=== PATIENT | male | born 1985 | race American Indian/Alaskan Native ===

== ENCOUNTER 2018-01-01 14:25 | Emergency (ER) | payer SELFPAY ==
[2018-01-01 15:02] VITALS: BP 139/94
[2018-01-01] MEDS ORDERED: ASPIRIN PO ONE (15:02)
[2018-01-01 15:26] LABS: Basophils % (Auto) 0.7 % (0.0-1.8); Eosinophils # (Auto) 0.1 K/mm3 (0.0-0.4); Eosinophils % (Auto) 1.5 % (0.0-4.3); Hematocrit 48.5 % (35.5-45.6); Hemoglobin 15.7 gm/dl (11.8-15.2); Lymphocytes % (Auto) 42.4 % (13.4-35.0); Mean Corpuscular HGB Conc 32 % (32-34); Mean Corpuscular Hemoglobin 28 pg (28-32); Mean Corpuscular Volume 85 fl (84-94); Monocytes # (Auto) 0.7 K/mm3 (0.0-0.8); Monocytes % (Auto) 9.7 % (0.0-7.3); Platelet Count 224 K/mm3 (140-440); Red Blood Count 5.71 M/mm3 (3.65-5.03); Red Cell Distribution Width 15.6 % (13.2-15.2)
[2018-01-01 15:45] LABS: BUN/Creatinine Ratio 19; Blood Urea Nitrogen 17 mg/dL (9-20); Calcium 9.1 mg/dL (8.4-10.2); Hemolysis Index 15
== END 2018-01-01 18:55 | disposition left against medical advice (07) ==
LOC: ED 14:25
DX: R07.9 Chest pain, unspecified (principal); Z53.21 Procedure and treatment not carried out due to patient leaving prior to being seen by health care provider
CPT/HCPCS: 36415; 80048; 84484; 85025; 93005; 93010

== ENCOUNTER 2019-05-19 23:32 | Inpatient (IN) | payer SELFPAY ==
[2019-05-20] MEDS ORDERED: ASPIRIN 325 MG TAB PO ONE (00:09)
--- NOTE | 2019-05-20 00:27 | Emergency Department Report ---
HPI - General Chief Complaint: Chest Pain Time Seen by Provider: 05/20/19 00:13 - HPI HPI: Room 6 The patient is a 34-year-old male presenting with a chief complaint of chest pain and left-sided numbness. The patient states about 30 minutes prior to ar rival he developed sharp intermittent pain in his left chest in addition to numbness in his left upper extremity and left lower extremity. Patient exhibits intermittent twitching of his left upper extremity. Patient denies shortness of breath but admits to diaphoresis and nausea without vomiting associated with this chest pain. Patient denies headache, dysarthria or dysphagia. Patient complains of slight weakness in his left upper extremity. The patient admits to similar episodes proximately 4-5 months ago but he never sought medical attention Location: [See above] Duration: [See above] Quality: [See above] Severity: [See above] Timing: [See above] Context: [See above] Modifying factors: [See above] Associated signs and symptoms: [see above] ED Past Medical Hx - Past Medical History Previous Medical History?: No - Surgical History Past Surgical History?: No - Family History Family history: no significant - Social History Smoking Status: Current Every Day Smoker (cigars) Substance Use Type: None (denies illicit drug use), Alcohol (daily) - Medications Home Medications: Home Medications Medication Instructions Recorded Confirmed Last Taken Type Cyclobenzaprine [Flexeril 10mg] 10 mg PO TID PRN #20 tablet 03/29/14 Unknown Rx HYDROcodone/APAP 5-325 [[place] 1 each PO Q6HR PRN #20 tablet 03/29/14 Unknown Rx 5/325] Ibuprofen [Motrin] 800 mg PO Q8H PRN #20 tablet 03/29/14 Unknown Rx ED Review of Systems ROS: Stated complaint: CHEST PAIN, LEFT ARM TINGLING Other details as noted in HPI Constitutional: diaphoresis Eyes: denies: eye pain ENT: denies: throat pain Respiratory: denies: shortness of breath Cardiovascular: chest pain Endocrine: no symptoms reported Gastrointestinal: nausea. denies: vomiting Genitourinary: denies: dysuria Musculoskeletal: denies: back pain Neurological: headache Physical Exam - Physical Exam Vital Signs: Vital Signs 05/19/19 23:37 Temperature 97.8 F Pulse Rate 107 H Respiratory 18 Rate Blood Pressure 132/82 O2 Sat by Pulse 94 Oximetry Physical Exam: GENERAL: The patient is well-developed well-nourished male lying on stretcher not appearing to be in acute distress. [] HEENT: Normocephalic. Atraumatic. Extraocular motions are intact. Patient has moist mucous membranes. NECK: Supple. Trachea midline CHEST/LUNGS: Clear to auscultation. There is no respiratory distress noted. HEART/CARDIOVASCULAR: Regular. There is no tachycardia. There is no gallop rub or murmur. ABDOMEN: Abdomen is soft, nontender. Patient has normal bowel sounds. There is no abdominal distention. SKIN: There is no rash. There is no edema. There is no diaphoresis. NEURO: The patient is awake, alert, and oriented. The patient is cooperative. Cranial nerves II through XII grossly intact, motor. The patient has normal MUSCULOSKELETAL: There is no evidence of acute injury. ED Course Vital Signs 05/19/19 23:37 Temperature 97.8 F Pulse Rate 107 H Respiratory 18 Rate Blood Pressure 132/82 O2 Sat by Pulse 94 Oximetry ED Medical Decision Making - Lab Data Result diagrams: 05/20/19 00:13 05/20/19 00:13 Laboratory Tests 05/20/19 05/20/19 05/20/19 00:13 00:13 00:20 WBC 7.5 RBC 5.22 H Hgb 14.5 Hct 44.2 MCV 85 MCH 28 MCHC 33 RDW 15.7 H Plt Count 207 Lymph % (Auto) 51.6 H Hughes % (Auto) 6.0 Eos % (Auto) 1.3 Baso % (Auto) 0.9 Lymph # 3.9 Hughes # 0.4 Eos # 0.1 Baso # 0.1 Seg Neutrophils % 40.2 Seg Neutrophils # 3.0 PT 13.2 INR 1.03 APTT 23.5 L Thrombin Time 15.8 Sodium 141 Potassium 3.9 Chloride 106.9 Carbon Dioxide 20 L Anion Gap 18 BUN 20 Creatinine 1.1 Estimated GFR > 60 BUN/Creatinine Ratio 18 Glucose 96 POC Glucose Calcium 9.1 Total Creatine Kinase CK-MB (CK-2) CK-MB (CK-2) Rel Index Troponin T < 0.010 05/20/19 05/20/19 00:20 00:31 WBC RBC Hgb Hct MCV MCH MCHC RDW Plt Count Lymph % (Auto) Hughes % (Auto) Eos % (Auto) Baso % (Auto) Lymph # Hughes # Eos # Baso # Seg Neutrophils % Seg Neutrophils # PT INR APTT Thrombin Time Sodium Potassium Chloride Carbon Dioxide Anion Gap BUN Creatinine Estimated GFR BUN/Creatinine Ratio Glucose POC Glucose 92 Calcium Total Creatine Kinase 433 H CK-MB (CK-2) 3.7 CK-MB (CK-2) Rel Index 0.8 Troponin T - EKG Data -: EKG Interpreted by Me EKG shows normal: sinus rhythm Rate: normal - EKG Data When compared to previous EKG there are: previous EKG unavailable Interpretation: nonspecific ST-T wave sary (TWI lead 3) - Radiology Data Radiology results: report reviewed (CT head, CT Chest, CXR), image reviewed (CT head, CT Chest, CXR) interpreted by me: CXR- no focal infil, no ptx [facility] [address] [place] [address] Cat Scan Report Signed Patient: MARITZA ELIZONDO MR#: [id number] : 1985 Acct:[id number] Age/Sex: 34 / M ADM Date: 05/19/19 Loc: ED Attending Dr: Ordering Physician: LEATHA FLYNN MD Date of Service: 05/20/19 Procedure(s): CT angio chest Accession Number(s): [id number] cc: LEATHA FLYNN MD CTA CHEST WITH CONTRAST INDICATION / CLINICAL INFORMATION: chest pain. TECHNIQUE: Axial CT images were obtained through the chest after injection of 100 mL Omnipaque 350 IV contrast. 3 plane MIP and/or 3D reconstructions were produced. All CT scans at this location are performed using CT dose reduction for ALARA by means of automated exposure control. COMPARISON: None available. FINDINGS: PULMONARY ARTERIES: No pulmonary emboli. THORACIC AORTA: No significant abnormality. HEART: No significant abnormality. CORONARY ARTERIES: No significant calcification. MEDIASTINUM / KAHTI: No significant abnormality. PLEURA: No pleural effusion. No pneumothorax. LUNGS: No acute air space or interstitial disease. ADDITIONAL FINDINGS: None. UPPER ABDOMEN: No acute findings. SKELETAL STRUCTURES: No significant osseous abnormality. IMPRESSION: 1. No CT evidence for pulmonary embolism. 2. No acute findings. Signer Name: Brittnee Candelario MD Signed: 05/20/2019 1:50 AM Workstation Name: [email or web address] Trans[employer] ribed By: MATTHIAS Dictated By: Juan C Candelario MD Electronically Authenticated By: Juan C Candelario MD Signed Date/Time: 05/20/19 0150 DD/ 0148 TD/TT: [address] [address] Cat Scan Report Signed Patient: MARITZA ELIZONDO MR#: [id number] : 1985 Acct:[id number] Age/Sex: 34 / M ADM Date: 05/19/19 Loc: ED Attending Dr: Ordering Physician: LEATHA FLYNN MD Date of Service: 05/20/19 Pro cedure(s): CT head/brain wo con Accession Number(s): [id number] cc: LEATHA FLYNN MD CT HEAD WITHOUT CONTRAST INDICATION / CLINICAL INFORMATION: left-sided numbness. STROKE ALERT. Left-sided Arm and Leg numbness, tingling. TECHNIQUE: All CT scans at this location are performed using CT dose reduction for ALARA by means of automated exposure control. COMPARISON: None available. FINDINGS: HEMORRHAGE: None. EXTRA-AXIAL SPACES: Normal in size and morphology for the patient's age. VENTRICULAR SYSTEM: Normal in size and morphology for the patient's age. CEREBRAL PARENCHYMA: No significant abnormality. No acute territorial infarct. MIDLINE SHIFT OR HERNIATION: None. CEREBELLUM / BRAINSTEM: No significant abnormality. ORBITS: Normal as visualized. SOFT TISSUES of HEAD: No significant abnormality. CALVARIUM: No significant abnormality. PARANASAL SINUSES / MASTOID AIR CELLS: Normal as visualized. ADDITIONAL FINDINGS: None. IMPRESSION: 1. No acute intracranial abnormality. COMMUNICATION: Time of Comm unication (PRINTING TABLE WORKER/CDT): 11:45 PM Licensed Practitioner Receiving Report: Dr. Flynn in the ED Signer Name: Brittnee Candelario MD Signed: 05/20/2019 12:43 AM Workstation Name: [id number] Transcribed By: MATTHIAS Dictated By: Juan C Candelario MD Electronically Authenticated By: Juan C Candelario MD Signed Date/Time: 05/20/19 0043 DD/ 0039 TD/TT: [address] [address] XRay Report Signed Patient: MARITZA ELIZONDO MR#: [id number] : 1985 Acct:[id number] Age/Sex: 34 / M ADM Date: 05/19/19 Loc: ED Attending Dr: Ordering Physician: LEATHA FLYNN MD Date of Service: 05/20/19 Procedure(s): XR chest 1V ap Accession Number(s): [id number] cc: ELATHA FLYNN MD Fluoro Time In Minutes: CHEST 1 VIEW 05/20/2019 12:47 AM INDICATION / CLINICAL INFORMATION: Chest Pain. COMPARISON: 02/05/12 FINDINGS: SUPPORT DEVICES: None. HEART / MEDIASTINUM: No significant abnormality. LUNGS / PLEURA: No significant pulmonar y or pleural abnormality. No pneumothorax. ADDITIONAL FINDINGS: No significant additional findings. IMPRESSION: 1. No acute findings. Signer Name: Brittnee Candelario MD Signed: 05/20/2019 1:08 AM Workstation Name: [id number] Transcribed By: DT Dictated By: Juan C Candelario MD Electronically Authenticated By: Juan C Candelario MD Signed Date/Time: 05/20/19107 DD/ 6 TD/TT: - Differential Diagnosis ACS, TIA, CVA, pericarditis Critical care attestation.: If time is entered above; I have spent that time in minutes in the direct care of this critically ill patient, excluding procedure time. ED Disposition Clinical Impression: Stroke (cerebrum), Chest pain Disposition: OP ADMIT IP TO THIS HOSP Is pt being admited?: Yes Does the pt Need Aspirin: No Condition: Fair Instructions: Chest Pain (ED) Referrals: PRIMARY CARE, [Primary Care Provider] - 3-5 Days Time of Disposition: 02:05 (Hospitalist paged (Dr Ramirez))
[2019-05-20 00:29] LABS: Basophils # (Auto) 0.1 K/mm3 (0.0-0.1); Basophils % (Auto) 0.9 % (0.0-1.8); Eosinophils # (Auto) 0.1 K/mm3 (0.0-0.4); Eosinophils % (Auto) 1.3 % (0.0-4.3); Hematocrit 44.2 % (35.5-45.6); Hemoglobin 14.5 gm/dl (11.8-15.2); Lymphocytes # (Auto) 3.9 K/mm3 (1.2-5.4); Lymphocytes % (Auto) 51.6 % (13.4-35.0); Mean Corpuscular HGB Conc 33 % (32-34); Mean Corpuscular Volume 85 fl (84-94); Monocytes # (Auto) 0.4 K/mm3 (0.0-0.8); Platelet Count 207 K/mm3 (140-440); Red Blood Count 5.22 M/mm3 (3.65-5.03); Red Cell Distribution Width 15.7 % (13.2-15.2)
[2019-05-20 00:40] LABS: INR 1.03 (0.87-1.13)
[2019-05-20 00:41] LABS: Partial Thromboplastin Time 23.5 Sec. (24.2-36.6); Thrombin Time 15.8 Sec. (15.1-19.6)
[2019-05-20 00:42] LABS: BUN/Creatinine Ratio 18; Blood Urea Nitrogen 20 mg/dL (9-20); Calcium 9.1 mg/dL (8.4-10.2); Hemolysis Index 7
[2019-05-20 00:42] LABS: Creatine Kinase MB 3.7 ng/mL (0.0-4.0)
[2019-05-20] MEDS ORDERED: SODIUM CHLORIDE 0.9% 50 ML IVPB IV ONE (00:45)
[2019-05-20] MEDS ORDERED: ALTEPLASE 100 MG INJ KIT IV ONE ×2 (00:45)
--- NOTE | 2019-05-20 00:47 | Cat Scan Report ---
CT HEAD WITHOUT CONTRAST INDICATION / CLINICAL INFORMATION: left-sided numbness. STROKE ALERT. Left-sided Arm and Leg numbness, tingling. TECHNIQUE: All CT scans at this location are performed using CT dose reduction for ALARA by means of automated e xposure control. COMPARISON: None available. FINDINGS: HEMORRHAGE: None. EXTRA-AXIAL SPACES: Normal in size and morphology for the patient's age. VENTRICULAR SYSTEM: Normal in size and morphology for the patient's age. CEREBRAL PARENCHYMA: No significant abnormality. No acute territorial infarct. MIDLINE SHIFT OR HERNIATION: None. CEREBELLUM / BRAINSTEM: No significant abnormality. ORBITS: Normal as visualized. SOFT TISSUES of HEAD: No significant abnormality. CALVARIUM: No significant abnormality. PARANASAL SINUSES / MASTOID AIR CELLS: Normal as visualized. ADDITIONAL FINDINGS: None. IMPRESSION: 1. No acute intracranial abnormality. COMMUNICATION: Time of Communication (TIRE CORD WEAVER/CDT): 11:45 PM Licensed Practitioner Receiving Report: Dr. Sparrow in the ED Signer Name: Brittnee Candelario MD Signed: 05/20/2019 12:43 AM Workstation Name: [id number]
--- NOTE | 2019-05-20 01:08 | Emergency Department Report ---
ED General Adult HPI - General Chief complaint: Chest Pain Stated complaint: CHEST PAIN, LEFT ARM TINGLING Time Seen by Provider: 05/20/19 00:13 Source: patient Mode of arrival: Ambulatory Limitations: No Limitations - History of Present Illness Initial comments: [facility] [employer] [facility] Date of Service: 05/20/2019 00:20:41 Impression: Right Hemispheric Comments: Left arm and leg weakness without facial droop along with his intermittent arm movements concern for a right basal ganglia infarct. Mechanism of Stroke: Possible Cardioembolic Small Vessel Disease Metrics: Last Known Well: 05/19/2019 23:00:00 [employer] Notification Time: 05/20/2019 00:20:01 Arrival Time: 05/19/2019 23:32:00 Stamp Time: 05/20/2019 00:20:41 Time First Login Attempt: 05/20/2019 00:23:32 Video Start Time: 05/20/2019 00:23:32 Symptoms: chest pain and left side tingling NIHSS Start Assessment Time: 05/20/2019 00:30:00 tPA Verbal Order Time: 05/20/2019 00:44:00 Patient is a candidate for tPA. tPA CPOE Order Time: 05/20/2019 00:46:50 Needle Time: 05/20/2019 01:05:19 Weight Noted by Staff: 95.7 kg Video End Time: 05/20/2019 01:07:20 CT head showed no acute hemorrhage or acute core infarct. CT head was reviewed. Advanced imaging was not obtained as the presentation was not suggestive of Large Vessel Occlusive Disease. ER physician notified of the decision on thrombolytics management. Verbal Consent to tPA: I have explained to the Patient the nature of the patients condition, the use of tPA fibrinolytic agent, and the benefits to be reasonably expected compared with alternative approaches. I have discussed the likelihood of major risks or complications of this procedure including (if applicable) but not limited to loss of limb function, brain damage, paralysis, hemorrhage, infection, complications from transfusion of blood components, drug reactions, blood clots and loss of life. I have also indicated that with any procedure there is always the possibility of an unexpected complication. All questions were answered and Patient express understanding of the treatment plan and consent to the treatment. Our recommendations are outlined below. Recommendations: IV tPA recommended. tPA bolus given Without Complication. IV tPA Total Dose 86.1 mg IV tPA Bolus Dose 8.6 mg IV tPA Infusion Dose - 77.5 mg Routine post tPA monitoring including neuro checks and blood pressure control during/after treatment Monitor blood pressure Check blood pressure and NIHSS every 15 min for 2 h, then every 30 min for 6 h, and finally every hour for 16 h. Manage Blood Pressure per post tPA protocol. Admission to ICU CT brain 24 hours post tPA NPO until swallowing screen performed and passed No antiplatelet agents or anticoagulants (including heparin for DVT prophylaxis) in first 24 hours No Beltrán catheter, nasogastric tube, arterial catheter or central venous catheter for 24 hr, unless absolutely necessary Telemetry Bedside swallow evaluation HOB less than 30 degrees Euglycemia Avoid hyperthermia, PRN acetaminophen DVT prophylaxis Inpatient Neurology Consultation Stroke evaluation as per inpatient neurology recommendations Additional Recommendations: MRI Head Without Contrast MRAs Head and Neck Stroke Protocol Start Atorvastatin Lipid Panel Check Hgb A1c Dysphagia Screen DVT Prophylaxis Hyperglycemia Treatment as per Primary Team PT/ OT / Speech Therapy Consultation Neurology to Be Consulted for Inpatient Routine Consultation Echocardiogram, TTE Discussed with ED physician History of Present Illness: Patient is a 34 years old Male. Patient was brought by EMS for symptoms of chest pain and left side tingling 34 yo M with no known medical history who is presenting with chest pain and left sided numbness. Patient started having chest pain and then his left arm started tingling. He was pausing when he tried to talk. This occurred at 23:00. He has off and on He has been drinking today, CT head showed no acute hemorrhage or acute core infarct. CT head was reviewed. Examination: BP(148/103), 1A: Level of Consciousness - Alert; keenly responsive + 0 1B: Ask Month and Age - Both Questions Right + 0 1C: Blink Eyes & Squeeze Hands - Performs Both Tasks + 0 2: Test Horizontal Extraocular Movements - Normal + 0 3: Test Visual Ku - No Visual Loss + 0 4: Test Facial Palsy (Use Grimace if Obtunded) - Normal symmetry + 0 5A: Test Left Arm Motor Drift - Drift, but doesn't hit bed + 1 5B: Test Right Arm Motor Drift - No Drift for 10 Seconds + 0 6A: Test Left Leg Motor Drift - Drift, but doesn't hit bed + 1 6B: Test Right Leg Motor Drift - No Drift for 5 Seconds + 0 7: Test Limb Ataxia (FNF/Heel-Carlson) - No Ataxia + 0 8: Test Sensation - Normal; No sensory loss + 0 9: Test Language/Aphasia - Normal; No aphasia + 0 10: Test Dysarthria - Normal + 0 11: Test Extinction/Inattention - No abnormality + 0 NIHSS Score: 2 Patient was informed the Neurology Consult would happen via TeleHealth consult by way of interactive audio and video telecommunications and consented to receiving care in this manner. Due to the immediate potential for life-threatening deterioration due to underlying acute neurologic illness, I spent 35 minutes providing critical care. This time includes time for face to face visit via telemedicine, review of medical records, imaging studies and discussion of findings with providers, the patient and/or family. Dr Domenica Petit [employer] - Related Data Previous Rx's Medication Instructions Recorded Last Taken Type Cyclobenzaprine [Flexeril 10mg] 10 mg PO TID PRN #20 tablet 03/29/14 Unknown Rx HYDROcodone/APAP 5-325 [[place] 1 each PO Q6HR PRN #20 tablet 03/29/14 Unknown Rx 5/325] Ibuprofen [Motrin] 800 mg PO Q8H PRN #20 tablet 03/29/14 Unknown Rx Allergies Allergy/AdvReac Type Severity Reaction Status Date / Time No Known Allergies Allergy Verified 01/01/18 22:48 ED Review of Systems ROS: Stated complaint: CHEST PAIN, LEFT ARM TINGLING Other details as noted in HPI Constitutional: diaphoresis Eyes: denies: eye pain ENT: denies: throat pain Respiratory: denies: shortness of breath Cardiovascular: chest pain Endocrine: no symptoms reported Gastrointestinal: nausea. denies: vomiting Genitourinary: denies: dysuria Musculoskeletal: denies: back pain Neurological: headache ED Past Medical Hx - Past Medical History Previous Medical History?: No - Surgical History Past Surgical History?: No - Social History Smoking Status: Current Every Day Smoker (cigars) Substance Use Type: None (denies illicit drug use), Alcohol (daily) - Medications Home Medications: Home Medications Medication Instructions Recorded Confirmed Last Taken Type Cyclobenzaprine [Flexeril 10mg] 10 mg PO TID PRN #20 tablet 03/29/14 Unknown Rx HYDROcodone/APAP 5-325 [[place] 1 each PO Q6HR PRN #20 tablet 03/29/14 Unknown Rx 5/325] Ibuprofen [Motrin] 800 mg PO Q8H PRN #20 tablet 03/29/14 Unknown Rx ED Physical Exam - General Limitations: No Limitations ED Course Vital Signs 05/19/19 23:37 Temperature 97.8 F Pulse Rate 107 H Respiratory 18 Rate Blood Pressure 132/82 O2 Sat by Pulse 94 Oximetry ED Medical Decision Making - Lab Data Result diagrams: 05/20/19 00:13 05/20/19 00:13 Critical care attestation.: If time is entered above; I have spent that time in minutes in the direct care of this critically ill patient, excluding procedure time. ED Disposition Clinical Impression: Stroke (cerebrum) Disposition: DC-09 OP ADMIT IP TO THIS HOSP Is pt being admited?: Yes Condition: Stable Referrals: PRIMARY CARE, [Primary Care Provider] - 3-5 Days
--- NOTE | 2019-05-20 01:12 | XRay Report ---
CHEST 1 VIEW 05/20/2019 12:47 AM INDICATION / CLINICAL INFORMATION: Chest Pain. COMPARISON: 02/05/12 FINDINGS: SUPPORT DEVICES: None. HEART / MEDIASTINUM: No significant abnormality. LUNGS / PLEURA: No significant pulmonary or pleural abnormality. No pneumothorax. ADDITIONAL FINDINGS: No significant additional findings. IMPRESSION: 1. No acute findings. Signer Name: Brittnee Candelario MD Signed: 05/20/2019 1:08 AM Workstation Name: [id number]
--- NOTE | 2019-05-20 01:55 | Cat Scan Report ---
CTA CHEST WITH CONTRAST INDICATION / CLINICAL INFORMATION: chest pain. TECHNIQUE: Axial CT images were obtained through the chest after injection of 100 mL Omnipaque 350 IV contrast. 3 plane MIP and/or 3D reconstructions were produced. All CT scans at this location are performed usin g CT dose reduction for ALARA by means of automated exposure control. COMPARISON: None available. FINDINGS: PULMONARY ARTERIES: No pulmonary emboli. THORACIC AORTA: No significant abnormality. HEART: No significant abnormality. CORONARY ARTERIES: No significant calcification. MEDIASTINUM / KATHI: No significant abnormality. PLEURA: No pleural effusion. No pneumothorax. LUNGS: No acute air space or interstitial disease. ADDITIONAL FINDINGS: None. UPPER ABDOMEN: No acute findings. SKELETAL STRUCTURES: No significant osseous abnormality. IMPRESSION: 1. No CT evidence for pulmonary embolism. 2. No acute findings. Signer Name: Brittnee Candelario MD Signed: 05/20/2019 1:50 AM Workstation Name: [id number]
--- NOTE | 2019-05-20 03:27 | History and Physical Report ---
History of Present Illness Date of examination: 05/20/19 Chief complaint: Chest pain History of present illness: Patient is a 34-year-old -[place] male with history of polysubstance abu se (tobacco and alcohol) who presented to the ED on account of few hours history of midsternal chest pain. He described it as sharp in character, rated 5 over 5 and non-radiating. The pain waxes and wanes. He has associated left hand numbness. He denies shortness of breath, palpitation, diaphoresis, cough, fever, chills, headaches, nausea, vomiting, lightheadedness, syncope or loss of consciousness. On arrival to the ED patient was noted to have left sided weakness on examination. The girl friend who was at his bedside also stated that she noticed that he had a long pause before he responded to her questions. No reported slurred speech or facial droop. In the ED, code stroke was called and he received TPA at 1:06. Subsequently, his LT sided weakness completely resolved Past History Past Medical History: No medical history Past Surgical History: No surgical history Social history: smoking (pt has 5 yr history of cigar smoking. He admits to binge alcohol consumption. He denies illicit drug use) Family history: hypertension (parents. No known family h/o heart attack or stroke) Medications and Allergies Allergies Allergy/AdvReac Type Severity Reaction Status Date / Time No Known Allergies Allergy Verified 01/01/18 22:48 Home Medications Medication Instructions Recorded Confirmed Last Taken Type Cyclobenzaprine [Flexeril 10mg] 10 mg PO TID PRN #20 tablet 03/29/14 Unknown Rx HYDROcodone/APAP 5-325 [[place] 1 each PO Q6HR PRN #20 tablet 03/29/14 Unknown Rx 5/325] Ibuprofen [Motrin] 800 mg PO Q8H PRN #20 tablet 03/29/14 Unknown Rx Active Meds: Active Medications Atorvastatin Calcium (Lipitor) 40 mg PO QHS JESSICA Sodium Chloride (Sodium Chloride Flush Syringe 10 Ml) 10 ml IV PRN PRN PRN Reason: LINE FLUSH Review of Systems All systems: negative (All other systems reviewed with the pt and are neg unless otherwise stated above) Exam - Constitutional Vitals: Temp Pulse Resp BP Pulse Ox 97.8 F 76 19 122/81 100 05/19/19 23:37 05/20/19 02:05 05/20/19 02:05 05/20/19 02:05 05/20/19 02:05 General appearance: Present: no acute distress, well-nourished - EENT Eyes: Present: PERRL, EOM intact ENT: hearing intact, clear oral mucosa - Neck Neck: Present: supple, normal ROM - Respiratory Respiratory effort: normal Respiratory: bilateral: CTA - Cardiovascular Rhythm: regular Heart Sounds: Present: S1 & S2. Absent: rub, click - Extremities Extremities: pulses symmetrical, No edema Peripheral Pulses: within normal limits - Abdominal General gastrointestinal: Present: soft, non-tender, non-distended, normal bowel sounds Male genitourinary: Present: deferred - Rectal Rectal Exam: deferred - Integumentary Integumentary: Present: clear, warm, dry - Musculoskeletal Musculoskeletal: gait normal, strength equal bilaterally - Psychiatric Psychiatric: appropriate mood/affect, intact judgment & insight - Neurologic Neurologic: CNII-XII intact, moves all extremities Results - Labs CBC & Chem 7: 05/20/19 00:13 05/20/19 00:13 Labs: Laboratory Last Values WBC 7.5 K/mm3 (4.5-11.0) 05/20/19 00:13 RBC 5.22 M/mm3 (3.65-5.03) H 05/20/19 00:13 Hgb 14.5 gm/dl (11.8-15.2) 05/20/19 00:13 Hct 44.2 % (35.5-45.6) 05/20/19 00:13 MCV 85 fl (84-94) 05/20/19 00:13 MCH 28 pg (28-32) 05/20/19 00:13 MCHC 33 % (32-34) 05/20/19 00:13 RDW 15.7 % (13.2-15.2) H 05/20/19 00:13 Plt Count 207 K/mm3 (140-440) 05/20/19 00:13 Lymph % (Auto) 51.6 % (13.4-35.0) H 05/20/19 00:13 [place] % (Auto) 6.0 % (0.0-7.3) 05/20/19 00:13 Eos % (Auto) 1.3 % (0.0-4.3) 05/20/19 00:13 Baso % (Auto) 0.9 % (0.0-1.8) 05/20/19 00:13 Lymph # 3.9 K/mm3 (1.2-5.4) 05/20/19 00:13 [place] # 0.4 K/mm3 (0.0-0.8) 05/20/19 00:13 Eos # 0.1 K/mm3 (0.0-0.4) 05/20/19 00:13 Baso # 0.1 K/mm3 (0.0-0.1) 05/20/19 00:13 Seg Neutrophils % 40.2 % (40.0-70.0) 05/20/19 00:13 Seg Neutrophils # 3.0 K/mm3 (1.8-7.7) 05/20/19 00:13 PT 13.2 Sec. (12.2-14.9) 05/20/19 00:20 INR 1.03 (0.87-1.13) 05/20/19 00:20 APTT 23.5 Sec. (24.2-36.6) L 05/20/19 00:20 15.8 Sec. (15.1-19.6) 05/20/19 00:20 Sodium 141 mmol/L (137-145) 05/20/19 00:13 Potassium 3.9 mmol/L (3.6-5.0) 05/20/19 00:13 Chloride 106.9 mmol/L (98-107) 05/20/19 00:13 Carbon Dioxide 20 mmol/L (22-30) L 05/20/19 00:13 18 mmol/L 05/20/19 00:13 BUN 20 mg/dL (9-20) 05/20/19 00:13 1.1 mg/dL (0.8-1.5) 05/20/19 00:13 Estimated GFR > 60 ml/min 05/20/19 00:13 18 % 05/20/19 00:13 Glucose 96 mg/dL (75-100) 05/20/19 00:13 POC Glucose 92 (70-105) 05/20/19 00:31 Calcium 9.1 mg/dL (8.4-10.2) 05/20/19 00:13 433 units/L (55-170) H 05/20/19 00:20 CK-MB (CK-2) 3.7 ng/mL (0.0-4.0) 05/20/19 00:20 CK-MB (CK-2) Rel Index 0.8 (0-4) 05/20/19 00:20 < 0.010 ng/mL (0.00-0.029) 05/20/19 00:13 - Imaging and Cardiology Chest x-ray: report reviewed CT scan - chest: report reviewed CT Scan - head: report reviewed Assessment and Plan Assessment and plan: Possible Acute Ischemic Stroke -s/p TPA at 1:06 today -Head CT scan neg -f/u CT head and neck, echo, lipids, hba1c -consult neurology Acute chest pain, r/o ACS -serial troponin level monitoring -consider further eval with stress test before d/c Metabolic acidosis -on IVF, will monitor level Polysubstance abuse (alcohol and tobacco) -pt counseled on cessation DVT ppx: SCD Disp: I spent 45 minutes providing critical care to this seriously ill pt who requires frequent reassessments of his neurological status
[2019-05-20] MEDS ORDERED: SODIUM CHLORIDE 0.9% 1000 ML 1,000 ML IV SCH (04:00)
--- NOTE | 2019-05-20 05:33 | Cat Scan Report ---
CTA neck without and with intravenous contrast material CLINICAL HISTORY: acute stroke TECHNIQUE: Following acquisition of a timing bolus 0.625 mm thick contiguous axial scans were obtained from aort ic arch to the skull base during rapid bolus intravenous contrast infusion. In addition to evaluation of axial source images multiplanar reconstructions were produced and reviewed for this report. 3 jose ne MIP reconstructions were also produced and reviewed for this report. FINDINGS: No abnormalities are seen to involve the visualized portions of the thoracic aorta or at the origins of the great vessels. Common carotid arteries, carotid bifurcations and cervical portions of the internal carotid arteries all have a normal appearance. There is no indication of hemodynamically significant stenosis. Normal and symmetrical vertebral arteries are present. There is no indication of stenosis along the c ourse of the vertebral arteries. Both vertebral arteries contribute to the basilar artery origin. The basilar artery has an unremarkable appearance. The degree of stenosis, if any, is determined utilizing NASCET like criteria. In this case there is no indication of hemodynamically significant stenosis. Evaluation of the nonvascular soft tissue structures reveal no abnormality. There is no indication of cervical lymphadenopathy. No abnormalities are seen along the course of the airway. Visualized porti ons of the parotid glands and the submandibular salivary glands have a normal appearance. Thyroid gla nd has a normal appearance. Evaluation of the lung apices reveals no evidence of lung nodule or infil trate. Evaluation of the cervical spine revealed no significant abnormalities. IMPRESSION: 1. No abnormalities are identified on CTA neck. Contrast dose report: Omnipaque 350: 100 ml, administered intravenously All CT examinations performed at this facility utilize modulated dose reduction, iterative reconstruc tion or weight-based dosing, as appropriate, to obtain a radiation dose which is as low as can reason ably be achieved. Signer Name: Eloy Sepulveda MD Signed: 05/20/2019 3:55 AM Workstation Name: [id number]
--- NOTE | 2019-05-20 05:33 | Cat Scan Report ---
CTA head with intravenous contrast CLINICAL HISTORY: acute stroke TECHNIQUE: 0.625 mm thick contiguous axial scans were obtained from the skull base to the skull vertex during ra pid bolus administration of intravenous contrast material. Multiplanar reconstructions were produced in the coronal and sagittal planes. In addition 3 plane MIP instructions were produced and reviewed f or this report. The axial source images and reconstructed images were reviewed for this report. All CT scans at this location are performed using CT dose reduction for ALARA by means of automated e xposure control. FINDINGS: The caliber of the intracranial vessels is normal throughout. There is no indication of intracranial stenosis or large vessel occlusion. There is no indication of vasculitis. There is no evidence of aneurysm or other vascular malformation. IMPRESSION: No abnormality identified on CTA head. CONTRAST DOSE REPORT: Omnipaque 350: 100 ml administered intravenously. Signer Name: Eloy Sepulveda MD Signed: 05/20/2019 3:50 AM Workstation Name: [id number]
--- NOTE | 2019-05-20 15:40 | Consultation ---
Past History Past Medical History: No medical history Past Surgical History: No surgical history Social history: smoking (pt has 5 yr history of cigar smoking. He admits to binge alcohol consumption. He denies illicit drug use) Family history: hypertension (parents. No known family h/o heart attack or stroke) Medications and Allergies Allergies Allergy/AdvReac Type Severity Reaction Status Date / Time No Known Allergies Allergy Verified 01/01/18 22:48 Home Medications Medication Instructions Recorded Confirmed Last Taken Type Cyclobenzaprine [Flexeril 10mg] 10 mg PO TID PRN #20 tablet 03/29/14 Unknown Rx HYDROcodone/APAP 5-325 [[place] 1 each PO Q6HR PRN #20 tablet 03/29/14 Unknown Rx 5/325] Ibuprofen [Motrin] 800 mg PO Q8H PRN #20 tablet 03/29/14 Unknown Rx Active Meds: Active Medications Atorvastatin Calcium (Lipitor) 40 mg PO QHS JESSICA Sodium Chloride (Nacl 0.9% 1000 Ml) 1,000 mls @ 75 mls/hr IV DIRECT JESSICA Sodium Chloride (Sodium Chloride Flush Syringe 10 Ml) 10 ml IV PRN PRN PRN Reason: LINE FLUSH Physical Examination - Vital Signs Vital Signs: Vital Signs Temp Pulse Resp BP Pulse Ox 97.8 F 107 H 18 132/82 94 05/19/19 23:37 05/19/19 23:37 05/19/19 23:37 05/19/19 23:37 05/19/19 23:37 Results - Laboratory Findings CBC and BMP: 05/20/19 00:13 05/20/19 00:13 Abnormal Lab Findings: Abnormal Labs 05/20/19 05/20/19 05/20/19 00:13 00:13 00:20 RBC 5.22 H RDW 15.7 H Lymph % (Auto) 51.6 H APTT 23.5 L Carbon Dioxide 20 L Total Creatine Kinase 05/20/19 00:20 RBC RDW Lymph % (Auto) APTT Carbon Dioxide Total Creatine Kinase 433 H Assessment and Plan 35 YR OLD MALE WITH HISTORY OF NO SIGNIFICANT MEDICAL PROBLEM AND WITH HIST OF ALCOHOL AND TOBACCO USE WHO DEVELOPED INTERMITTENT CHEST PAIN SINCE LAST NIGHT. PATIENT DEVELOPED NUMBNESS OF LEFT HAND THIS MORNING IN ASSOCIATION WITH CHEST PAIN. PATIENT WAS BROUGHT TO THE EMERGENCY ON CODE STROKE. PATIENT WAS FOUND TO HAVE LEFT SIDED WEAKNESS ON PHYSICAL EXAMINATION IN THE ER, AND WHEN CT SCAN OF THE BRAIN DID NOT SHOW ANY HEMORRHAGE HE WAS GIVEN TPA. FOLLOWING TPA ADMINISTRATION HIS LEFT SIDED WEAKNESS DISAPPEARED.PATIENT IS ADMITTED TO ICU PER TPA PROTOCOL. PHYSICAL EXAMINATION- PATIENT IS IN NO ACUTE DISTRESS.HE IS ALERT AND APPROPRIATE. AND HAS INSIGHT INTO HIS PROBLEM. HEART- NORMAL RATE AND RYTHM. CAROTIDS- BOTH PALPABLE. CRANIAL NERVES- ALL CRANIAL NERVES ARE WITH IN NORMAL LIMIT,THERE WAS NO FACIAL ASYMMETRY OR WEAKNESS, PUPILS REACTED TO LIGHT ,EXTRA OCULAR MOVEMENT WAS INTACT, OTHER CRANIAL NERVES ARE WITH IN NORMAL LIMIT, MOTOR- NORMAL STRENGTH IN ALL FOUR EXTREMITIES. THERE WAS NO ASYMMETRY OF STRENGTH BETWEEN RT AND LEFT SIDED EXTREMITIES. REFLEXES- ALL REFLEXES ARE WITH IN NORMAL LIMIT WITH BILATERAL DOWN GOING TOES. COORDINATION -NORMAL. SENSORY- SENSORY EXAMINATION IS GROSSLY WITH IN NORMAL LIMIT, IMPRESSION. 1. ACUTE LEFT WILFRED PARESIS PROBABLY DUE TO LEFT SIDED ISCHAEMIA WHICH RESOLVED AFTER TPA ADMINISTRATION, RECOMMEND- 1. ASPIRIN 81 MG PO QD. 2. PLEASE GET MRI OF BRAIN WITH OUT CONTRAST 3. 2D ECHO. 4. CT ANGIOGRAM OF NECK I.E. BOTH ANTERIOR AND POSTERIOR CIRCULATION. 5. LIPID PROFILE, T4,TSH. 6. FURTHER RECOMMENDATION TO FOLLOW BASED ON THE RESULT OF THE RECOMMENDED STUDIES.
--- NOTE | 2019-05-20 16:41 | Consultation ---
History of Present Illness Consult date: 05/20/19 Requesting physician: SONIDO GROSS Reason for consult: other (Chest pain, CVA\) History of present illness: Pt. admitted after developing L sided hemiparesis and chest pain anteriorly. Denies fevers, chills, cough, sputum, hemoptysis, N/V/D. He received TPA ~ 0100 today with improvement but not full resolution of the L sided hemiparesis. He denies dysphagia. Chest pain has resolved. On RA. Past History Past Medical History: No medical history Past Surgical History: No surgical history Social history: smoking (pt has 5 yr history of cigar smoking. He admits to binge alcohol consumption. He denies illicit drug use), other (EtOH use) Family history: hypertension (parents. No known family h/o heart attack or stroke) Medications and Allergies Allergies Allergy/AdvReac Type Severity Reaction Status Date / Time No Known Allergies Allergy Verified 01/01/18 22:48 Home Medications Medication Instructions Recorded Confirmed Last Taken Type No Known Home Medications [No 05/20/19 05/20/19 Unknown History Reported Home Medications] Active Meds: Active Medications Atorvastatin Calcium (Lipitor) 40 mg PO QHS JESSICA Sodium Chloride (Nacl 0.9% 1000 Ml) 1,000 mls @ 75 mls/hr IV DIRECT JESSICA Sodium Chloride (Sodium Chloride Flush Syringe 10 Ml) 10 ml IV PRN PRN PRN Reason: LINE FLUSH Review of Systems All systems: negative Physical Examination Vital signs: Vital Signs Temp Pulse Resp BP Pulse Ox 97.8 F 107 H 18 132/82 94 05/19/19 23:37 05/19/19 23:37 05/19/19 23:37 05/19/19 23:37 05/19/19 23:37 General appearance: no acute distress, alert, other (obese) Eyes: non-icteric ENT: oropharynx moist Neck: supple Effort: normal Ascultation: Bilateral: clear Cardiovascular: regular rate and rhythm (no mrg) Gastrointestinal: normoactive bowel sounds, soft, non-tender, non-distended Integumentary: normal Extremities: no cyanosis, no edema, pink and warm, pulses normal Musculoskeletal: no deformities pupils equal and round, CN II-XII normal, other (L sided weakness (LUE and LLE)) mood appropriate, affect normal Results - Laboratory Findings CBC and BMP: 10/01/19 04:10 05/21/19 04:10 PT/INR, D-dimer PT 13.2 Sec. (12.2-14.9) 05/20/19 00:20 INR 1.03 (0.87-1.13) 05/20/19 00:20 Abnormal lab findings: Abnormal Labs 05/20/19 05/20/19 05/20/19 00:13 00:13 00:20 RBC 5.22 H RDW 15.7 H Lymph % (Auto) 51.6 H APTT 23.5 L Carbon Dioxide 20 L Total Creatine Kinase 05/20/19 00:20 RBC RDW Lymph % (Auto) APTT Carbon Dioxide Total Creatine Kinase 433 H - Diagnostic Findings Chest x-ray: report reviewed, image reviewed CT scan - chest: report reviewed, image reviewed Assessment and Plan Imp: 1. Acute CVA s/p TPA 2. Chest pain, resolved 3. Mild metabolic acidosis 4. Chronic nicotine dependence 5. Obesity Rec: 1. Monitor in ICU for 24 hours post-TPA 2. Await MRI brain & Echo 3. Neurology consult placed 4. PT/OT 5. SCDs for now 6. Stop smoking/EtOH 7. Once out of ICU we will sign off since no pulmonary issues; chest imaging reviewed and unremarkable Plan of care reviewed w/ patient, he understands/agrees
--- NOTE | 2019-05-20 17:12 | Magnetic Resonance Report ---
MRI BRAIN 05/20/2019 INDICATION / CLINICAL INFORMATION: stroke. Left-sided numbness TECHNIQUE: Multiplanar, multisequence MR images of the brain were obtained. COMPARISON: CT brain 05/20/2019 FINDINGS: BRAIN / INTRACRANIAL CONTENTS: Unenhanced MR images of the brain demonstrate no evidence of acute int racranial abnormality. Ventricles and sulci are normal in size and shape. There is no evidence of acute ischemic injury, demyelination, hemorrhage, or mass. There are no abnor mal extra-axial fluid collections. EXTRACRANIAL: Unremarkable CRANIOCERVICAL JUNCTION: No significant abnormality. VASCULAR FLOW-VOIDS: No significant abnormality. IMPRESSION: Negative unenhanced MRI of the brain. Signer Name: Cong Maldonado MD Signed: 05/20/2019 5:08 PM Workstation Name: [id number]
--- NOTE | 2019-05-20 17:23 | Progress Note ---
Assessment and Plan - Patient Problems (1) Chest pain Current Visit: Yes Status: Acute (2) Stroke (cerebrum) Current Visit: Yes Status: Acute History Interval history: 4-year-old polysubstance abuse recent alcohol binge presents with 9 radiating chest pain and left-sided weakness. Code was called in ED patient received TPA for left-sided weakness which resolved shortly after administration. Patient now transferred to the ICU for observation. Status post TPA this morning. Patient currently has some mild residual weakness in the left extremity. Mostly raising arm. Once arm gets above here patient begins to have tremors and weakness. Otherwise alert oriented 3 normal functions. Abnormalities had seems to be appropriate at this time weaker where appropriate. Assessment and plan observation on patient with TPA. Has had negative troponin and no EKG changes. Counseled on substance abuse. I will review CT scan negative. Head CT reviewed and negative. CT reviewed negative. Chest x-ray also unremarkable. MRI for further evaluation. Aspirin at this time. will to evaluate need for statin. Hospitalist Physical - Constitutional Vitals: Temp Pulse Resp BP Pulse Ox 98.8 F 77 18 130/77 99 05/20/19 16:00 05/20/19 13:00 05/20/19 13:00 05/20/19 13:00 05/20/19 13:00 General appearance: Present: no acute distress, well-nourished Results - Labs CBC & Chem 7: 05/20/19 00:13 05/20/19 00:13 Labs: Laboratory Last Values WBC 7.5 K/mm3 (4.5-11.0) 05/20/19 00:13 RBC 5.22 M/mm3 (3.65-5.03) H 05/20/19 00:13 Hgb 14.5 gm/dl (11.8-15.2) 05/20/19 00:13 Hct 44.2 % (35.5-45.6) 05/20/19 00:13 MCV 85 fl (84-94) 05/20/19 00:13 MCH 28 pg (28-32) 05/20/19 00:13 MCHC 33 % (32-34) 05/20/19 00:13 RDW 15.7 % (13.2-15.2) H 05/20/19 00:13 Plt Count 207 K/mm3 (140-440) 05/20/19 00:13 Lymph % (Auto) 51.6 % (13.4-35.0) H 05/20/19 00:13 [place] % (Auto) 6.0 % (0.0-7.3) 05/20/19 00:13 Eos % (Auto) 1.3 % (0.0-4.3) 05/20/19 00:13 Baso % (Auto) 0.9 % (0.0-1.8) 05/20/19 00:13 Lymph # 3.9 K/mm3 (1.2-5.4) 05/20/19 00:13 [place] # 0.4 K/mm3 (0.0-0.8) 05/20/19 00:13 Eos # 0.1 K/mm3 (0.0-0.4) 05/20/19 00:13 Baso # 0.1 K/mm3 (0.0-0.1) 05/20/19 00:13 Seg Neutrophils % 40.2 % (40.0-70.0) 05/20/19 00:13 Seg Neutrophils # 3.0 K/mm3 (1.8-7.7) 05/20/19 00:13 PT 13.2 Sec. (12.2-14.9) 05/20/19 00:20 INR 1.03 (0.87-1.13) 05/20/19 00:20 APTT 23.5 Sec. (24.2-36.6) L 05/20/19 00:20 Thrombin Time 15.8 Sec. (15.1-19.6) 05/20/19 00:20 Sodium 141 mmol/L (137-145) 05/20/19 00:13 Potassium 3.9 mmol/L (3.6-5.0) 05/20/19 00:13 Chloride 106.9 mmol/L (98-107) 05/20/19 00:13 Carbon Dioxide 20 mmol/L (22-30) L 05/20/19 00:13 Anion Gap 18 mmol/L 05/20/19 00:13 BUN 20 mg/dL (9-20) 05/20/19 00:13 Creatinine 1.1 mg/dL (0.8-1.5) 05/20/19 00:13 Estimated GFR > 60 ml/min 05/20/19 00:13 BUN/Creatinine Ratio 18 % 05/20/19 00:13 Glucose 96 mg/dL (75-100) 05/20/19 00:13 POC Glucose 92 (70-105) 05/20/19 00:31 Calcium 9.1 mg/dL (8.4-10.2) 05/20/19 00:13 Total Creatine Kinase 433 units/L (55-170) H 05/20/19 00:20 CK-MB (CK-2) 3.7 ng/mL (0.0-4.0) 05/20/19 00:20 CK-MB (CK-2) Rel Index 0.8 (0-4) 05/20/19 00:20 Troponin T < 0.010 ng/mL (0.00-0.029) 05/20/19 Unknown - Imaging and Cardiology EKG: report reviewed Chest x-ray: report reviewed CT scan - chest: pending, report reviewed CT Scan - head: pending, report reviewed Active Medications - Current Medications Current Medications: Generic Name Dose Route Start Last Admin Trade Name Freq PRN Reason Stop Dose Admin Atorvastatin Calcium 40 mg 05/20/19 22:00 Lipitor PO QHS JESSICA Sodium Chloride 1,000 mls @ 75 mls/hr 05/20/19 04:00 Nacl 0.9% 1000 Ml IV DIRECT JESSICA Sodium Chloride 10 ml 05/20/19 02:49 Sodium Chloride Flush Syringe 10 Ml IV PRN PRN LINE FLUSH
[2019-05-21 04:34] LABS: Hematocrit 44.9 % (35.5-45.6); Hemoglobin 14.8 gm/dl (11.8-15.2); Mean Corpuscular HGB Conc 33 % (32-34); Mean Corpuscular Volume 86 fl (84-94); Platelet Count 185 K/mm3 (140-440); Red Blood Count 5.24 M/mm3 (3.65-5.03); Red Cell Distribution Width 15.6 % (13.2-15.2)
[2019-05-21 05:57] LABS: BUN/Creatinine Ratio 17; Blood Urea Nitrogen 17 mg/dL (9-20); Chol/HDL Ratio 4.24 %; HDL Cholesterol 49 mg/dL (40-59); Hemolysis Index 4; LDL Cholesterol,Direct 140 mg/dL (50-130)
--- NOTE | 2019-05-21 13:44 | Progress Note ---
Assessment and Plan Possible Acute Ischemic Stroke -s/p TPA at 1:06 am on 05/20/19 -Head CT scan neg, MRI brain negative -f/u CT head and neck, echo, lipids, hba1c -consulted neurology - f/u PT recommendation Acute chest pain, r/o ACS -serial troponin level monitoring -consider further eval with stress test before d/c - Cardiology consulted Metabolic acidosis -on IVF, will monitor level Polysubstance abuse (alcohol and tobacco) -pt counseled on cessation - Monitor for withdrawal, we'll obtain UDS DVT ppx: SCD Brief history: Patient is a 34-year-old -[place] male with history of polysubstance abuse (tobacco and alcohol) who presented to the ED on account of few hours history of midsternal chest pain with associated left hand numbness. On arrival to the ED patient was noted to have left sided weakness on examination. The girl friend who was at his bedside also stated that she noticed that he had a long pause before he responded to her questions. No reported slurred speech or facial droop. In the ED, code stroke was called and he received TPA at 1:06. Subsequently, his LT sided weakness completely resolved, he was admitted for further evaluation and management. Physical exam: GENERAL: well-developed and well-nourished obese AAM lying on bed appeared to be in no discomfort. HEENT: Normocephalic. Atraumatic. No conjunctival congestion or icterus. Patient has moist mucous membranes. NECK: Supple. Trachea midline. CHEST/LUNGS: Clear to auscultated bilaterally, breathing nonlabored. No wheezes crackles or rhonchi. HEART/CARDIOVASCULAR: Regular in rate and rhythm. S1 and S2 positive. ABDOMEN: Abdomen is soft, nontender. Patient has normal bowel sounds. SKIN: There is no rash. Warm and dry. NEURO: left sided weakness. Follows command. MUSCULOSKELETAL: No joint effusion or tenderness. EXTRIMITY: No edema, no cyanosis or clubbing. PSYCH: Cooperative. Subjective Date of service: 05/21/19 Interval history: Patient seen and examined. Medical records and medication list reviewed. No acute event overnight noted by the RN. Patient denies any chest pain or difficulty breathing. Patient is tolerating diet. Discussed plan of care at bedside with patient. Objective - Constitutional Vitals: Vital Signs - 12hr 1005/21/19 05/21/19 01:50 02:00 02:10 Temperature Pulse Rate 65 76 65 Pulse Rate [ From Monitor] Pulse Rate [ Right Arm] Pulse Rate [ Right Dorsalis Pedis] Respiratory 13 14 13 Rate Respiratory Rate [No pain] Respiratory Rate [Right Arm ] Blood Pressure 117/80 117/80 113/76 Blood Pressure [Right Arm] O2 Sat by Pulse 96 96 95 Oximetry O2 Sat by Pulse Oximetry [ Right Arm] 05/21/19 05/21/19 05/21/19 02:20 02:30 02:40 Temperature Pulse Rate 66 61 66 Pulse Rate [ From Monitor] Pulse Rate [ Right Arm] Pulse Rate [ Right Dorsalis Pedis] Respiratory 13 10 L 13 Rate Respiratory Rate [No pain] Respiratory Rate [Right Arm ] Blood Pressure 112/75 116/81 116/81 Blood Pressure [Right Arm] O2 Sat by Pulse 96 94 96 Oximetry O2 Sat by Pulse Oximetry [ Right Arm] 05/21/19 05/21/19 05/21/19 02:50 03:00 03:10 Temperature Pulse Rate 66 63 60 Pulse Rate [ From Monitor] Pulse Rate [ Right Arm] Pulse Rate [ Right Dorsalis Pedis] Respiratory 14 13 14 Rate Respiratory Rate [No pain] Respiratory Rate [Right Arm ] Blood Pressure 118/78 113/73 113/73 Blood Pressure [Right Arm] O2 Sat by Pulse 96 95 96 Oximetry O2 Sat by Pulse Oximetry [ Right Arm] 05/21/19 05/21/19 05/21/19 03:20 03:30 03:40 Temperature 97.8 F Pulse Rate 62 73 70 Pulse Rate [ From Monitor] Pulse Rate [ Right Arm] Pulse Rate [ Right Dorsalis Pedis] Respiratory 12 13 14 Rate Respiratory Rate [No pain] Respiratory Rate [Right Arm ] Blood Pressure 114/88 106/77 106/77 Blood Pressure [Right Arm] O2 Sat by Pulse 97 93 96 Oximetry O2 Sat by Pulse Oximetry [ Right Arm] 05/21/19 05/21/19 05/21/19 03:50 04:00 04:10 Temperature Pulse Rate 65 59 L 72 Pulse Rate [ From Monitor] Pulse Rate [ Right Arm] Pulse Rate [ Right Dorsalis Pedis] Respiratory 13 12 12 Rate Respiratory Rate [No pain] Respiratory Rate [Right Arm ] Blood Pressure 105/66 112/72 112/72 Blood Pressure [Right Arm] O2 Sat by Pulse 96 93 98 Oximetry O2 Sat by Pulse Oximetry [ Right Arm] 05/21/19 05/21/19 05/21/19 04:20 04:30 04:40 Temperature Pulse Rate 71 70 66 Pulse Rate [ From Monitor] Pulse Rate [ Right Arm] Pulse Rate [ Right Dorsalis Pedis] Respiratory 12 11 L 13 Rate Respiratory Rate [No pain] Respiratory Rate [Right Arm ] Blood Pressure 129/91 128/97 128/97 Blood Pressure [Right Arm] O2 Sat by Pulse 98 98 100 Oximetry O2 Sat by Pulse Oximetry [ Right Arm] 05/21/19 05/21/19 05/21/19 04:50 05:00 05:10 Temperature Pulse Rate 62 65 59 L Pulse Rate [ From Monitor] Pulse Rate [ 63 Right Arm] Pulse Rate [ Right Dorsalis Pedis] Respiratory 15 13 16 Rate Respiratory Rate [No pain] Respiratory 16 Rate [Right Arm ] Blood Pressure 127/84 125/87 125/87 Blood Pressure 117/86 [Right Arm] O2 Sat by Pulse 98 97 97 Oximetry O2 Sat by Pulse 100 Oximetry [ Right Arm] 05/21/19 05/21/19 05/21/19 05:12 05:20 05:30 Temperature Pulse Rate 72 59 L 54 L Pulse Rate [ From Monitor] Pulse Rate [ Right Arm] Pulse Rate [ 70 Right Dorsalis Pedis] Respiratory 13 12 Rate Respiratory Rate [No pain] Respiratory Rate [Right Arm ] Blood Pressure 117/86 120/93 Blood Pressure [Right Arm] O2 Sat by Pulse 97 99 93 Oximetry O2 Sat by Pulse Oximetry [ Right Arm] 05/21/19 05/21/19 05/21/19 05:40 05:50 06:00 Temperature Pulse Rate 69 70 57 L Pulse Rate [ From Monitor] Pulse Rate [ Right Arm] Pulse Rate [ Right Dorsalis Pedis] Respiratory 15 17 12 Rate Respiratory Rate [No pain] Respiratory Rate [Right Arm ] Blood Pressure 120/93 128/89 122/83 Blood Pressure [Right Arm] O2 Sat by Pulse 97 97 98 Oximetry O2 Sat by Pulse Oximetry [ Right Arm] 05/21/19 05/21/19 05/21/19 06:10 06:20 06:30 Temperature Pulse Rate 65 59 L 61 Pulse Rate [ From Monitor] Pulse Rate [ Right Arm] Pulse Rate [ Right Dorsalis Pedis] Respiratory 14 13 12 Rate Respiratory Rate [No pain] Respiratory Rate [Right Arm ] Blood Pressure 122/83 121/78 127/81 Blood Pressure [Right Arm] O2 Sat by Pulse 97 96 97 Oximetry O2 Sat by Pulse Oximetry [ Right Arm] 05/21/19 05/21/19 05/21/19 06:40 06:50 07:00 Temperature Pulse Rate 66 68 57 L Pulse Rate [ From Monitor] Pulse Rate [ 57 L Right Arm] Pulse Rate [ Right Dorsalis Pedis] Respiratory 13 16 13 Rate Respiratory Rate [No pain] Respiratory 13 Rate [Right Arm ] Blood Pressure 127/81 125/79 116/79 Blood Pressure 116/79 [Right Arm] O2 Sat by Pulse 96 97 95 Oximetry O2 Sat by Pulse 95 Oximetry [ Right Arm] 05/21/19 05/21/19 05/21/19 07:10 07:20 07:30 Temperature Pulse Rate 61 60 66 Pulse Rate [ From Monitor] Pulse Rate [ Right Arm] Pulse Rate [ Right Dorsalis Pedis] Respiratory 15 9 L 12 Rate Respiratory Rate [No pain] Respiratory Rate [Right Arm ] Blood Pressure 121/78 120/77 130/87 Blood Pressure [Right Arm] O2 Sat by Pulse 96 100 95 Oximetry O2 Sat by Pulse Oximetry [ Right Arm] 05/21/19 05/21/19 05/21/19 07:40 07:50 08:00 Temperature 98.3 F Pulse Rate 64 57 L 61 Pulse Rate [ 61 From Monitor] Pulse Rate [ 61 Right Arm] Pulse Rate [ Right Dorsalis Pedis] Respiratory 14 12 14 Rate Respiratory Rate [No pain] Respiratory 14 Rate [Right Arm ] Blood Pressure 130/87 127/86 133/87 Blood Pressure 133/87 [Right Arm] O2 Sat by Pulse 98 98 97 Oximetry O2 Sat by Pulse 97 Oximetry [ Right Arm] 05/21/19 05/21/19 05/21/19 08:10 08:13 08:20 Temperature Pulse Rate 65 80 86 Pulse Rate [ From Monitor] Pulse Rate [ Right Arm] Pulse Rate [ Right Dorsalis Pedis] Respiratory 9 L 21 Rate Respiratory Rate [No pain] Respiratory Rate [Right Arm ] Blood Pressure 130/87 128/89 Blood Pressure [Right Arm] O2 Sat by Pulse 99 99 Oximetry O2 Sat by Pulse Oximetry [ Right Arm] 05/21/19 05/21/19 05/21/19 08:30 08:40 08:50 Temperature Pulse Rate 76 72 72 Pulse Rate [ From Monitor] Pulse Rate [ Right Arm] Pulse Rate [ Right Dorsalis Pedis] Respiratory 14 10 L 18 Rate Respiratory Rate [No pain] Respiratory Rate [Right Arm ] Blood Pressure 129/81 133/87 128/80 Blood Pressure [Right Arm] O2 Sat by Pulse 98 100 97 Oximetry O2 Sat by Pulse Oximetry [ Right Arm] 05/21/19 05/21/19 05/21/19 09:00 09:10 09:20 Temperature Pulse Rate 75 96 H 81 Pulse Rate [ From Monitor] Pulse Rate [ 75 Right Arm] Pulse Rate [ Right Dorsalis Pedis] Respiratory 15 10 L 17 Rate Respiratory Rate [No pain] Respiratory 15 Rate [Right Arm ] Blood Pressure 131/73 131/73 127/68 Blood Pressure 131/73 [Right Arm] O2 Sat by Pulse 92 98 97 Oximetry O2 Sat by Pulse 92 Oximetry [ Right Arm] 05/21/19 05/21/19 05/21/19 09:30 09:40 09:52 Temperature Pulse Rate 78 106 H Pulse Rate [ From Monitor] Pulse Rate [ Right Arm] Pulse Rate [ Right Dorsalis Pedis] Respiratory 16 20 Rate Respiratory Rate [No pain] Respiratory Rate [Right Arm ] Blood Pressure 126/65 130/84 130/84 Blood Pressure [Right Arm] O2 Sat by Pulse 94 99 Oximetry O2 Sat by Pulse Oximetry [ Right Arm] 05/21/19 05/21/19 05/21/19 10:00 10:10 10:20 Temperature Pulse Rate 99 H 97 H 74 Pulse Rate [ From Monitor] Pulse Rate [ 99 H Right Arm] Pulse Rate [ Right Dorsalis Pedis] Respiratory 23 22 16 Rate Respiratory 23 Rate [No pain] Respiratory 23 Rate [Right Arm ] Blood Pressure 136/87 136/87 129/84 Blood Pressure 136/87 [Right Arm] O2 Sat by Pulse 97 100 98 Oximetry O2 Sat by Pulse 97 Oximetry [ Right Arm] 05/21/19 05/21/19 05/21/19 10:30 10:40 10:50 Temperature Pulse Rate 73 79 75 Pulse Rate [ From Monitor] Pulse Rate [ Right Arm] Pulse Rate [ Right Dorsalis Pedis] Respiratory 18 12 12 Rate Respiratory Rate [No pain] Respiratory Rate [Right Arm ] Blood Pressure 120/79 129/84 123/83 Blood Pressure [Right Arm] O2 Sat by Pulse 93 98 99 Oximetry O2 Sat by Pulse Oximetry [ Right Arm] 05/21/19 05/21/19 05/21/19 11:00 11:22 12:07 Temperature 98.4 F Pulse Rate 73 Pulse Rate [ 78 From Monitor] Pulse Rate [ 78 Right Arm] Pulse Rate [ Right Dorsalis Pedis] Respiratory 14 18 Rate Respiratory Rate [No pain] Respiratory 14 Rate [Right Arm ] Blood Pressure 126/92 125/83 Blood Pressure 126/92 [Right Arm] O2 Sat by Pulse 99 99 99 Oximetry O2 Sat by Pulse 99 Oximetry [ Right Arm] - Labs CBC & Chem 7: 05/21/19 04:10 05/21/19 04:10 Labs: Abnormal lab results 05/21/19 05/21/19 Range/Units 04:10 04:10 RBC 5.24 H (3.65-5.03) M/mm3 RDW 15.6 H (13.2-15.2) % Triglycerides 218 H (2-149) mg/dL Cholesterol 208 H (50-199) mg/dL LDL Cholesterol Direct 140 H (50-130) mg/dL
--- NOTE | 2019-05-21 14:20 | Consultation ---
History of Present Illness Consult date: 05/21/19 Requesting physician: MANDO HINKLE Consult reason: chest pain History of present illness: The patient is a 34-year-old male with history of tobacco use, ETOH use. He is previously unknown to our practice. He presented with c/o left sided tingling and weakness and chest pain. His symptoms began on 05/19 around 11PM. He was out with his girlfriend when he started to feel "bad". He went and sat in his car and while he was sitting, he noted sudden onset left-sided stabbing chest pain which radiated down his left arm. The pain lasted for approx 5-10 minutes and then spontaneously resolved. He then developed left arm tingling and left-sided weakness which made it difficult for him to walk. He then decided to seek medical attention. Following arrival to ED, he was found to have left-sided weakness on physical examination, CT was negative. Code stroke was called and he was given tPA at approx 1AM on 05/20 which improved his symptoms. On evaluation, he states that he is still slightly weak on his left side. He has had no reoccurrence of chest pain. He denies any prior cardiac issues or cardiac complaints. His father recently had cardiac stent placement at 52 YOA. Past History Past Medical History: No medical history Past Surgical History: No surgical history Social history: smoking (pt has 5 yr history of cigar smoking), alcohol abuse (binge drinking every other day), other (denies illicit drug use) Family history: hypertension (parents. No known family h/o heart attack or stroke) Medications and Allergies Allergies Allergy/AdvReac Type Severity Reaction Status Date / Time No Known Allergies Allergy Verified 01/01/18 22:48 Home Medications Medication Instructions Recorded Confirmed Last Taken Type No Known Home Medications [No 05/20/19 05/20/19 Unknown History Reported Home Medications] Active Meds: Active Medications Atorvastatin Calcium (Lipitor) 40 mg PO QHS JESSICA Last Admin: 05/20/19 21:15 Dose: 40 mg Documented by: Sodium Chloride (Nacl 0.9% 1000 Ml) 1,000 mls @ 75 mls/hr IV DIRECT JESSICA Last Admin: 05/20/19 19:31 Dose: 75 mls/hr Documented by: Sodium Chloride (Sodium Chloride Flush Syringe 10 Ml) 10 ml IV PRN PRN PRN Reason: LINE FLUSH Last Admin: 05/20/19 21:15 Dose: 10 ml Documented by: Review of Systems Constitutional: no weight loss, no weight gain, no fever, no chills, no sweats Ears, nose, mouth and throat: no ear pain, no nose pain, no sinus pressure, no sinus pain Cardiovascular: chest pain, no orthopnea, no palpitations, no rapid/irregular heart beat, no edema, no syncope, no lightheadedness, no shortness of breath, no dyspnea on exertion, no high blood pressure, no leg edema Respiratory: no cough, no shortness of breath, no dyspnea on exertion, no congestion, no wheezing, no pain on inspiration Gastrointestinal: no abdominal pain, no nausea, no vomiting, no diarrhea, no constipation, no change in bowel habits Genitourinary Male: no dysuria, no hematuria, no flank pain, no discharge, no urinary frequency, no urinary hesitancy Musculoskeletal: arm numbness/tingling (LUE), other (left-sided weakness), no neck stiffness, no neck pain, no low back pain, no shooting leg pain Integumentary: no rash, no pruritis, no redness, no sores, no wounds Neurological: weakness (left-sided), tingling (left-sided), no head injury, no paralysis, no seizures, no syncope Psychiatric: no anxiety Endocrine: no cold intolerance, no heat intolerance Hematologic/Lymphatic: no easy bruising, no easy bleeding Allergic/Immunologic: no urticaria, no wheezing Physical Examination Vital Signs Temp Pulse Resp BP Pulse Ox 97.8 F 107 H 18 132/82 94 05/19/19 23:37 05/19/19 23:37 05/19/19 23:37 05/19/19 23:37 05/19/19 23:37 General appearance: no acute distress HEENT: Positive: PERRL, Normocephaly, Mucus Membranes Moist Neck: Positive: neck supple, trachea midline Cardiac: Positive: Reg Rate and Rhythm, S1/S2 Lungs: Positive: clear to auscultation Neuro: Positive: Grossly Intact Abdomen: Negative: Tender Musculoskeletal: No Pain Extremities: Absent: edema Results 05/21/19 04:10 05/21/19 04:10 Lipids 05/21/19 Range/Units 04:10 Triglycerides 218 H (2-149) mg/dL Cholesterol 208 H (50-199) mg/dL HDL Cholesterol 49 (40-59) mg/dL Cholesterol/HDL Ratio 4.24 % CBC 05/21/19 Range/Units 04:10 WBC 6.7 (4.5-11.0) K/mm3 RBC 5.24 H (3.65-5.03) M/mm3 Hgb 14.8 (11.8-15.2) gm/dl Hct 44.9 (35.5-45.6) % Plt Count 185 (140-440) K/mm3 Comprehensive Metabolic Panel 05/21/19 Range/Units 04:10 Sodium 139 (137-145) mmol/L Potassium 4.4 (3.6-5.0) mmol/L Chloride 103.2 (98-107) mmol/L Carbon Dioxide 24 (22-30) mmol/L BUN 17 (9-20) mg/dL Creatinine 1.0 (0.8-1.5) mg/dL Glucose 87 (75-100) mg/dL Calcium 9.0 (8.4-10.2) mg/dL - Imaging and Cardiology Echo: report reviewed EKG: report reviewed, image reviewed EKG interpretations - Telemetry EKG Rhythm: Sinus Rhythm - EKG Sinus rhythms and dysrhythmias: sinus rhythm Assessment and Plan ? Acute Ischemic CVA s/p TPA at 1:06 am on 05/20/19. Pt reports he still has minimal left-sided weakness. Neurology w/u in progress. Head CT negative, MRI brain negative, head CTA negative, neck CTA negative. Echo reviewed - EF 55-60%, negative bubble study. Plan for lexiscan MPI stress test in AM. NPO after MN. Chest pain Currently resolved. AMI ruled out. Echo reviewed - EF 55-60%, negative bubble study. Plan for lexiscan MPI stress test in AM. NPO after MN. HLP New diagnosis. Initiated on statin. ETOH use / tobacco use Cessation encouraged. Family history of CAD Father s/p recent cardiac stent placement at 52 YOA. The patient has been seen in conjunction with Dr. Henriquez who agrees with the assessment and plan of care.
[2019-05-21 17:21] LABS: Amphetamine Screen,Urine PRESUMPTIVE NEGATIVE; Benzodiazepines Screen,Urine PRESUMPTIVE NEGATIVE; Cannabinoid Screen,Urine PRESUMPTIVE NEGATIVE; Cocaine Screen,Urine PRESUMPTIVE NEGATIVE; Methadone Screen,Urine PRESUMPTIVE NEGATIVE; Opiate Screen,Urine PRESUMPTIVE NEGATIVE
[2019-05-21] MEDS: ASPIRIN EC 325 MG TAB PO SCH (17:51)
[2019-05-22] MEDS ORDERED: REGADENOSON 0.4 MG/5 ML INJ IV ONE ×2 (08:27)
--- NOTE | 2019-05-22 11:33 | Progress Note ---
Assessment and Plan ? Acute Ischemic CVA s/p TPA at 1:06 am on 05/20/19. Neurology w/u in progress. Head CT negative, MRI brain negative, head CTA negative, neck CTA negative. Echo reviewed - EF 55-60%, negative bubble study. S/p lexiscan MPI stress test today which was negative. Chest pain Currently resolved. AMI ruled out. Echo reviewed - EF 55-60%, negative bubble study. S/p lexiscan MPI stress test today which was negative. HLP Cont statin. ETOH use / tobacco use Cessation encouraged. Family history of CAD Father s/p recent cardiac stent placement at 52 YOA. Currently stable cardiac status. S/p lexiscan MPI stress test today which was negative. Pt may discharge from cardiology standpoint. Recommend follow up in our office with Dr. Henriquez within 1-2 weeks of discharge ([phone]). The patient has been seen in conjunction with Dr. Henriquez who agrees with the assessment and plan of care. Subjective Date of service: 05/22/19 Principal diagnosis: ? CVA Interval history: for stress test. no current complaints. in SR on tele with SB noted overnight, HR low 47bpm. Objective Last Vital Signs Temp 98.5 F 05/22/19 03:43 Pulse 74 05/22/19 08:00 Resp 16 05/22/19 03:43 BP 134/83 05/22/19 03:43 Pulse Ox 100 05/22/19 03:43 - Physical Examination General: No Apparent Distress HEENT: Positive: PERRL, Normocephaly, Mucus Membranes Moist Neck: Positive: neck supple, trachea midline Cardiac: Positive: Reg Rate and Rhythm, S1/S2 Lungs: Positive: Decreased Breath Sounds Neuro: Positive: Grossly Intact Abdomen: Negative: Tender Musculoskeletal: No Pain Extremities: Absent: edema - Imaging and Cardiology EKG: report reviewed, image reviewed Echo: report reviewed - EKG Sinus rhythms and dysrhythmias: sinus rhythm
[2019-05-22 11:42] VITALS: BP 141/84
--- NOTE | 2019-05-22 12:39 | Discharge Summary ---
Providers - Providers Date of Admission: 05/20/19 02:55 Date of discharge: 05/22/19 Attending physician: MANDO HINKLE 05/20/19 02:50 Occupational Therapy Evaluate and Treat [CONS] Routine Comment: Reason For Exam: Neuro deficits Physical Therapy Evaluation and Treat [CONS] Routine Comment: Reason For Exam: Neuro deficits 05/20/19 07:45 Consult to Physician [CONS] Routine Comment: Consulting Provider: INNA CARRASCO Physician Instructions: Reason For Exam: icu admission 05/20/19 12:07 Consult to Physician [CONS] Urgent Comment: Consulting Provider: CALISTA LUND Physician Instructions: Reason For Exam: CVA s/p TPA 05/21/19 13:41 Consult to Physician [CONS] Routine Comment: Consulting Provider: BRIE POZO Physician Instructions: Reason For Exam: chest pain Primary care physician: [employer] SALES REPRESENTATIVE Hospitalization Condition: Fair Pertinent studies: CT head CTA head/neck MRI brain CTA chest 2d echo Stress test Hospital course: Brief history: Patient is a 34-year-old -[place] male with history of polysubstance abuse (tobacco and alcohol) who presented to the ED on account of few hours history of midsternal chest pain with associated left hand numbness. On arrival to the ED patient was noted to have left sided weakness on examination. The girl friend who was at his bedside also stated that she noticed that he had a long pause before he responded to her questions. No reported slurred speech or facial droop. In the ED, code stroke was called and he received TPA at 1:06. Subsequently, his LT sided weakness completely resolved, he was admitted for further evaluation and management. Discharge diagnosis and Mx: Possible Acute Ischemic Stroke -s/p TPA at 1:06 am on 05/20/19 -Head CT scan neg, MRI brain negative -negative CT head and neck, preserved EF on echo, -consulted neurology - recommended to cont aspirin and statin -PT recommended outpt PT/OT - Patient was discharged home in stable condition Acute chest pain, ruled out ACS - likely from GERD -serial troponin level negative - Cardiology consulted - normal EF on 2d echo and normal stress test - will cont PPI outpt Metabolic acidosis -treated with IVF, Polysubstance abuse (alcohol and tobacco) -pt counseled on cessation - Monitored for withdrawal, normal UDS DVT ppx: SCD Physical exam: GENERAL: well-developed and well-nourished obese AAM lying on bed appeared to be in no discomfort. HEENT: Normocephalic. Atraumatic. No conjunctival congestion or icterus. Patient has moist mucous membranes. NECK: Supple. Trachea midline. CHEST/LUNGS: Clear to auscultated bilaterally, breathing nonlabored. No wheezes crackles or rhonchi. HEART/CARDIOVASCULAR: Regular in rate and rhythm. S1 and S2 positive. ABDOMEN: Abdomen is soft, nontender. Patient has normal bowel sounds. SKIN: There is no rash. Warm and dry. NEURO: left sided weakness. Follows command. MUSCULOSKELETAL: No joint effusion or tenderness. EXTRIMITY: No edema, no cyanosis or clubbing. PSYCH: Cooperative. Disposition: DC-01 TO HOME OR SELFCARE Time spent for discharge: 34 minutes Core Measure Documentation - Palliative Care Palliative Care/ Comfort Measures: Not Applicable - Core Measures Any of the following diagnoses?: stroke - Stroke Discharge Requirements Statin for LDL = or >70 mg/dl on DC: Yes Anticoag for atrial fib/atrial flutter: Not Applicable Antithrombotic for ischemic stroke: Yes Exam - Constitutional Vitals: Temp Pulse Resp BP Pulse Ox 98.5 F 98 H 16 141/84 100 05/22/19 03:43 05/22/19 09:42 05/22/19 03:43 05/22/19 09:42 05/22/19 03:43 Plan Activity: advance as tolerated Weight Bearing Status: Weight Bear as Tolerated Diet: low fat, low salt Follow up with: PRIMARY MD JOSLYN [Primary Care Provider] - 3-5 Days BRIE POZO MD [Staff Physician] - 7 Days AMADA AMIN MD [Staff Physician] - 7 Days Prescriptions: AtorvaSTATin [Lipitor] 40 mg PO QHS #30 tablet Aspirin EC [Halfprin EC] 81 mg PO QDAY #30 tablet. Pantoprazole [Protonix] 40 mg PO QDAY #30 tablet Other Discharge Orders: Occupational Therapy (Amb) Location: None Selected Physicial Therapy (Amb) Location: None Selected
[2019-05-22] MEDS: ASPIRIN EC 325 MG TAB PO SCH (13:07)
== END 2019-05-22 15:05 | disposition home or self-care (01) | DRG 62 ==
LOC: ED 23:32 → CC1 05-20 02:55 → 4A 05-21 11:35
PROVIDERS: ADMIT Internal Medicine; ATTEND Internal Medicine
DX: I63.9 Cerebral infarction, unspecified (principal); G81.94 Hemiplegia, unspecified affecting left nondominant side; F17.290 Nicotine dependence, other tobacco product, uncomplicated; R29.702 NIHSS score 2; E66.9 Obesity, unspecified; E78.5 Hyperlipidemia, unspecified; F10.10 Alcohol abuse, uncomplicated; Y90.9 Presence of alcohol in blood, level not specified; K21.9 Gastro-esophageal reflux disease without esophagitis; Z71.6 Tobacco abuse counseling; Z82.49 Family history of ischemic heart disease and other diseases of the circulatory system; Z68.32 Body mass index [BMI] 32.0-32.9, adult; Z71.41 Alcohol abuse counseling and surveillance of alcoholic
CPT/HCPCS: 36415; 70450; 70496; 70498; 70551; 71045; 71275; 78452; 80048; 80061; 80307; 82550; 82553; 82962; 83036; 83735; 84443; 84484; 85025; 85027; 85610; 85670; 85730; 93005; 93010; 93017; 93306; 96374; 96375; 99406; G0378; A9270-GY; A9502; J2785; J2997; J7030; Q9967

== ENCOUNTER 2021-03-18 09:42 | Emergency (ER) | payer SELFPAY ==
[2021-03-18 10:11] VITALS: BP 128/84
--- NOTE | 2021-03-18 13:32 | XRay Report ---
Left knee 4 views INDICATION: Fall FINDINGS: Alignment appears normal. No acute fracture dislocation. No joint effusion. Signer Name: Kush Ott MD Signed: 03/18/2021 1:19 PM Workstation Name: [id number]
--- NOTE | 2021-03-18 13:36 | Emergency Department Report ---
ED Lower Extremity HPI - General Chief Complaint: Extremity Injury, Lower Stated Complaint: SLIPPED AND HIT KNEE/PAIN Time Seen by Provider: 03/18/21 12:42 Source: patient Mode of arrival: Ambulatory Limitations: No Limitations - History of Present Illness Initial Comments: Patient is a 35-year-old male who presents emergency room complaints of a slip a nd fall that occurred last night. He states he fell and hit his knee against the concrete. He states since then he has had knee pain and swelling. He denies any laceration or abrasion. In the past. He denies any numbness or weakness. He is ambulatory with a limp. No past medical history. No allergies to medications. - Related Data Previous Rx's Medication Instructions Recorded Last Taken Type Aspirin EC [Halfprin EC] 81 mg PO QDAY #30 tablet. 05/22/19 Unknown Rx AtorvaSTATin [Lipitor] 40 mg PO QHS #30 tablet 05/22/19 Unknown Rx Pantoprazole [Protonix] 40 mg PO QDAY #30 tablet 05/22/19 Unknown Rx Naproxen [EC-Naprosyn] 500 mg PO BID PRN #20 tablet. 03/18/21 Unknown Rx Allergies Allergy/AdvReac Type Severity Reaction Status Date / Time No Known Allergies Allergy Verified 03/18/21 10:08 ED Review of Systems ROS: Stated complaint: SLIPPED AND HIT KNEE/PAIN Other details as noted in HPI Comment: All other systems reviewed and negative ED Past Medical Hx - Past Medical History Previous Medical History?: No Hx Hypertension: Yes - Surgical History Past Surgical History?: No - Social History Smoking Status: Current Every Day Smoker - Medications Home Medications: Home Medications Medication Instructions Recorded Confirmed Last Taken Type Aspirin EC [Halfprin EC] 81 mg PO QDAY #30 tablet. 05/22/19 Unknown Rx AtorvaSTATin [Lipitor] 40 mg PO QHS #30 tablet 05/22/19 Unknown Rx Pantoprazole [Protonix] 40 mg PO QDAY #30 tablet 05/22/19 Unknown Rx Naproxen [EC-Naprosyn] 500 mg PO BID PRN #20 tablet. 03/18/21 Unknown Rx ED Physical Exam - General Limitations: No Limitations General appearance: alert, in no apparent distress - Head Head exam: Present: atraumatic, normocephalic - Eye Eye exam: Present: normal appearance - ENT ENT exam: Present: mucous membranes moist - Respiratory Respiratory exam: Absent: respiratory distress, accessory muscle use - Extremities Exam Extremities exam: Present: other (ttp to the left anterior and left medial knee, mild edema, FROM of the LLE with pain upon full flexion and extension, neurovascularly intact, no deformity) - Neurological Exam Neurological exam: Present: alert, oriented X3 - Psychiatric Psychiatric exam: Present: normal affect, normal mood - Skin Skin exam: Present: warm, dry, intact ED Course Vital Signs 03/18/21 10:10 Temperature 99.1 F Pulse Rate 100 H Respiratory 18 Rate Blood Pressure 128/84 O2 Sat by Pulse 100 Oximetry ED Lower Extremity MDM - Radiology Data Radiology results: report reviewed Ordering Physician: CAESAR STEWART Date of Service: 03/18/21 Procedure(s): XR knee 4+V LT Accession Number(s): [id number] cc: CAESAR STEWART Fluoro Time In Minutes: Left knee 4 views INDICATION: Fall FINDINGS: Alignment appears normal. No acute fracture dislocation. No joint effusion. Signer Name: Kush Ott MD Signed: 03/18/2021 1:19 PM Workstation Name: [id number] Transcribed By: LEXI Dictated By: MURIEL OTT MD Electronically Authenticated By: MURIEL OTT MD Signed Date/Time: 03/18/211318 DD/ 18 TD/TT: - Medical Decision Making Patient is a 35-year-old male who presents emergency room complaints of a slip and fall that occurred last night. He states he fell and hit his knee against the concrete. He states since then he has had knee pain and swelling. He denies any laceration or abrasion. In the past. He denies any numbness or weakness. He is ambulatory with a limp. No past medical history. No allergies to medications. Vitals are stable. On exam: ttp to the left anterior and left medial knee, mild edema, FROM of the LLE with pain upon full flexion and extension, neurovascularly intact, no deformity. XR left knee: FINDINGS: A lignment appears normal. No acute fracture dislocation. No joint effusion. Likely related to knee sprain. Patient placed in Balwinder wrap and given crutches by nursing and remained neurovascular intact. Discussed all results with patient and answer questions and discussed the importance of orthopedic follow-up. Advised patient Please take medication as prescribed as needed. May use ice for 15 minutes at a time, rest, elevation of the leg. Follow-up with the orthopedic doctor. Return to emergency room for any new or worsening symptoms. Critical care attestation.: If time is entered above; I have spent that time in minutes in the direct care of this critically ill patient, excluding procedure time. ED Disposition Clinical Impression: Left knee pain Qualifiers: Chronicity: acute Qualified Code(s): M25.562 - Pain in left knee Disposition: DC- TO HOME OR SELFCARE Is pt being admited?: No Does the pt Need Aspirin: No Condition: Stable Instructions: Knee Sprain, Adult, [id number] Additional Instructions: Please take medication as prescribed as needed. May use ice for 15 minutes at a time, rest, elevation of the leg. Follow-up with the orthopedic doctor. Return to emergency room for any new or worsening symptoms. Prescriptions: Naproxen [EC-Naprosyn] 500 mg PO BID PRN #20 tablet.dr BERG Reason: pain Referrals: PRIMARY CAREMD [Primary Care Provider] - 3-5 Days LEONARDO MICHAEL MD [Staff Physician] - 3-5 Days [facility] [Provider Group] - 3-5 Days Forms: Work/School Release Form(ED) Time of Disposition: 13:36 Print Language: MONTSERRATIAN
== END 2021-03-18 14:00 | disposition home or self-care (01) ==
LOC: ED 09:42
DX: M25.562 Pain in left knee (principal); W22.8XXA Striking against or struck by other objects, initial encounter; Y93.89 Activity, other specified; Y92.89 Other specified places as the place of occurrence of the external cause; Y99.8 Other external cause status
CPT/HCPCS: 99283